=== PATIENT | female | born 1970 | race Caucasian/White ===

== ENCOUNTER 2019-12-15 10:17 | Emergency (ER) | payer BC ==
[2019-12-15] MEDS ORDERED: SODIUM CHLORIDE 0.9% 1,000 ML IV STA (10:40)
--- NOTE | 2019-12-15 10:44 | ED ---
Chest Pain HPI - General Chief Complaint: Chest Pain Stated Complaint: chest pain Time Seen by Provider: 12/15/19 10:25 Source: patient, RN notes reviewed, old records reviewed Mode of arrival: ambulatory Limitations: no limitations - History of Present Illness Initial Comments: Patient is a 49-year-old female with a history of Covid infection in diagnosed November 28. Patient reports that she has now improved, no fevers and slight malaise, less cough and denies any significant shortness of breath but she has been having intermittent chest pain with exertion. She reports that she is very active and healthy and typically runs multiple miles a day. She states with the Covid diagnoses she's not been running but still trying to walk. She reports that last night she when she walks 3 miles she noticed a chest pressure. She denies any current chest pain. She was evaluated by her PCP today and was told to come to the ER for abnormal EKG. - Related Data Home Medications Medication Instructions Recorded Confirmed No Known Home Medications 12/15/19 12/15/19 Allergies Allergy/AdvReac Type Severity Reaction Status Date / Time Penicillins AdvReac Rash/Hives Verified 12/15/19 11:15 Review of Systems ROS Statement: Those systems with pertinent positive or pertinent negative responses have been documented in the HPI. ROS Other: All systems not noted in ROS Statement are negative. EKG Findings - EKG Comments: EKG Findings:: EKG performed at 1046 shows sinus bradycardia for a rightward axis. Abnormal EKG. Ventricular rate of 40 bpm. Was 158 ms. Respirations 82 ms. QT QTc is 442/394 ms. Past Medical History Past Medical History: No Reported History Past Surgical History: No Surgical Hx Reported Smoking Status: Never smoker Past Alcohol Use History: None Reported Past Drug Use History: None Reported General Exam - General Exam Comments Initial Comments: 41-year-old female. Alert and oriented 3. No significant distress. Limitations: no limitations General appearance: alert, in no apparent distress Head exam: Present: atraumatic, normocephalic, normal inspection Eye exam: Present: normal appearance, PERRL, EOMI. Absent: scleral icterus, conjunctival injection, periorbital swelling ENT exam: Present: normal exam, mucous membranes moist Neck exam: Present: normal inspection. Absent: tenderness, meningismus, lymphadenopathy Respiratory exam: Present: normal lung sounds bilaterally. Absent: respiratory distress, wheezes, rales, rhonchi, stridor Cardiovascular Exam: Present: regular rate, normal rhythm, normal heart sounds. Absent: systolic murmur, diastolic murmur, rubs, gallop, clicks GI/Abdominal exam: Present: soft, normal bowel sounds. Absent: distended, tenderness, guarding, rebound, rigid Back exam: Present: normal inspection Neurological exam: Present: alert, oriented X3, CN II-XII intact Psychiatric exam: Present: normal affect, normal mood Course Vital Signs 12/15/19 10:18 Temperature 98.1 F Pulse Rate 54 L Respiratory 16 Rate Blood Pressure 111/71 O2 Sat by Pulse 100 Oximetry Chest Pain MDM - MDM 41-year-old feel presents with 2 weeks of chest pain after being diagnosed with Coban. She states that she was concerned and went to [facility] here for further evaluation. Patient is young and healthy active avid runner. Patient had low heart rate. Patient's labs including d-dimer and troponin are negative. Patient's EKG showed no acute changes. Discussed case with Dr. Cano who discussed the patient's PCP. With diagnosis of pleuritic chest pain post Coban admitted to follow-up with PCP and possible cardiology for reassessment. Patient understands treatment plan will comply. Chest x-ray is negative for any acute process. Correlate for COPD. Disposition Clinical Impression: Atypical chest pain Disposition: HOME SELF-CARE Condition: Good Instructions (If sedation given, give patient instructions): Costochondritis (ED) Additional Instructions: Follow-up with PCP and cardiology. Return to the ED if any alarming signs or symptoms occur. Is patient prescribed a controlled substance at d/c from ED?: No Referrals: Cricket Hogan MD [Primary Care Provider] - 1-2 days Time of Disposition: 13:11
[2019-12-15 11:30] LABS: Basophils # (A) 0.1 k/uL (0-0.2); Basophils % (A) 1 %; Eosinophils # (A) 0.2 k/uL (0-0.7); Eosinophils % (A) 2 %; HCT 41.8 % (34.0-46.0); HGB 13.9 gm/dL (11.4-16.0); Lymphocytes # (A) 1.3 k/uL (1.0-4.8); Lymphocytes % (A) 21 %; MCH 30.2 pg (25.0-35.0); MCHC 33.3 g/dL (31.0-37.0); MCV 90.6 fL (80.0-100.0); Mean Platelet Volume 8.2; Monocytes # (A) 0.3 k/uL (0-1.0); Monocytes % (A) 5 %; Neutrophils # (A) 4.4 k/uL (1.3-7.7); Neutrophils % (A) 69 %; Platelet Count 255 k/uL (150-450); RBC 4.61 m/uL (3.80-5.40); RDW 12.8 % (11.5-15.5); WBC 6.4 k/uL (3.8-10.6)
--- NOTE | 2019-12-15 11:39 | XR ---
EXAMINATION TYPE: XR chest 2V DATE OF EXAM: 12/15/2019 COMPARISON: NONE TECHNIQUE: PA and lateral views submitted. HISTORY: Chest pain FINDINGS: The lungs are clear and there is no pneumothorax, pleural effusion, or focal pneumonia. Biapical ple ural thickening. Hyperinflation suggests COPD. No overt failure. Heart size normal. IMPRESSION: 1. No acute process. Correlate for COPD.
[2019-12-15 11:42] LABS: ALT 18 U/L (4-34); AST 27 U/L (14-36); African American GFR (CKD) >90 (>60 ml/min/1.73 sqM); Albumin 4.9 g/dL (3.5-5.0); Alkaline Phosphatase 28 U/L (38-126); Anion Gap 9 mmol/L; Blood Urea Nitrogen 16 mg/dL (7-17); Calcium 9.7 mg/dL (8.4-10.2); Carbon Dioxide 27 mmol/L (22-30); Chloride 102 mmol/L (98-107); Glucose 85 mg/dL (74-99); Magnesium 2.3 mg/dL (1.6-2.3); Non-African American GFR(CKD) 87 (>60 ml/min/1.73 sqM); Potassium 4.3 mmol/L (3.5-5.1); Sodium 138 mmol/L (137-145); Total Bilirubin 0.7 mg/dL (0.2-1.3); Total Protein 7.9 g/dL (6.3-8.2)
[2019-12-15 11:54] LABS: D-Dimer 0.29 mg/L FEU (<0.60); Prothrombin Time 10.4 sec (9.0-12.0)
[2019-12-15 11:55] LABS: Partial Thromboplastin Time 23.3 sec (22.0-30.0)
[2019-12-15 13:23] VITALS: BP 108/68; PULSE 57; RESP 18; TEMP 98.3
== END 2019-12-15 13:24 | disposition home or self-care (01) ==
LOC: EC 10:17
DX: R07.89 Other chest pain (principal); R94.31 Abnormal electrocardiogram [ECG] [EKG]; Z88.0 Allergy status to penicillin
CPT/HCPCS: 36415; 71046; 80053; 83735; 83880; 84484; 85025; 85379; 85610; 85730; 93005; 96360; 99285

== ENCOUNTER → 2020-05-02 | Outpatient (CLI) | payer BC ==
--- NOTE | 2020-05-02 20:15 | CT ---
EXAMINATION TYPE: CT brain wo con DATE OF EXAM: 05/02/2020 COMPARISON: None INDICATION: c/o migraines and eye twitching DLP: 981.7 mGycm, Automated exposure control for dose reduction was used. CONTRAST: None CT of the brain is performed utilizing 3 mm thick sections through the posterior fossa and 3 mm thick sections through the remaining calvarium. Study is performed within 24 hours of arrival to the hosp [facility]. No abnormal hyperdensity is present to suggest an acute intracranial hemorrhage. No mass lesion is evident. No acute infarcts are evident. Ventricles and sulci are appropriate for the patient age. Paranasal sinuses are clear. There is fluid-filled right mastoid air cells. No septal destruction is evident. Clinical correlation for mastoiditis is recommended. Left mastoid air cells are clear IMPRESSIONS: 1. No acute intracranial process. 2. Correlate for acute right mastoiditis.
== END | disposition home or self-care (01) ==
LOC: RADCTMAIN 18:27
PROVIDERS: ATTEND Family Medicine
DX: G43.909 Migraine, unspecified, not intractable, without status migrainosus (principal)
CPT/HCPCS: 70450

== ENCOUNTER → 2021-12-17 | Outpatient (CLI) | payer BC ==
[2021-12-17 09:06] LABS: Partial Thromboplastin Time 24.3 sec (22.0-30.0); Prothrombin Time 10.9 sec (9.0-12.0)
[2021-12-17 10:12] LABS: Basophils # (A) 0.06 X 10*3/uL (0.00-0.10); Basophils % (A) 1.2 %; Eosinophils # (A) 0.07 X 10*3/uL (0.04-0.35); Eosinophils % (A) 1.4 %; HCT 39.4 % (37.2-46.3); Immature Grans, Automated 0.2 %; Lymphocytes % (A) 28.9 %; MCH 30.7 pg (27.0-32.0); MCV 93.1 fL (80.0-97.0); Mean Platelet Volume 11.4 fL (9.5-12.2); Monocytes % (A) 6.2 %; NRBC Per 100 WBC 0 /100 WBCS (0.0-0.0); Neutrophils % (A) 62.1 %; Platelet Count 177 X 10*3/uL (140-440); RBC 4.23 X 10*6/uL (4.10-5.20); RDW 12.2 % (11.5-14.5); WBC 4.84 X 10*3/uL (4.50-10.00)
[2021-12-17 10:31] LABS: HDL Cholesterol 98.1 mg/dL (40.00-60.00); Triglycerides 44.2 mg/dL (0.00-149.00)
[2021-12-17 10:41] LABS: Erythrocyte Sedimentation Rate 2 mm/Hr (0-20)
[2021-12-17 10:43] LABS: Chol/HDL Ratio 2.15 Ratio
== END | disposition home or self-care (01) ==
LOC: LABWHC1 12-11 16:16
PROVIDERS: ATTEND Ophthalmology
DX: H34.8122 Central retinal vein occlusion, left eye, stable (principal)
CPT/HCPCS: 36415; 80061; 83721; 85025; 85610; 85652; 85730

== ENCOUNTER → 2022-01-08 | Outpatient (CLI) | payer BC ==
--- NOTE | 2022-01-09 07:30 | US ---
EXAMINATION TYPE: US carotid duplex BILAT DATE OF EXAM: 01/08/2022 COMPARISON: NONE CLINICAL HISTORY: H35.62 RETINAL HEMORRHAGE, LEFT EYE. Macular subretinal hemorrhage, left eye. TECHNIQUE: Carotid duplex ultrasound examination. Indirect Doppler criteria was utilized. FINDINGS: EXAM MEASUREMENTS: RIGHT: Peak Systolic Velocity (PSV) cm/sec ----- Right CCA: 81.4 ----- Right ICA: 108 ----- Right ECA: 85.7 ICA/CCA ratio: 1.33 RIGHT: End Diastole cm/sec ----- Right CCA: 23.0 ----- Right ICA: 39.8 ----- Right ECA: 12.4 LEFT: Peak Systolic Velocity (PSV) cm/sec ----- Left CCA: 102 ----- Left ICA: 99.4 ----- Left ECA: 70.8 ICA/CCA ratio: 0.97 LEFT: End Diastole cm/sec ----- Left CCA: 29.8 ----- Left ICA: 36.7 ----- Left ECA: 9.3 VERTEBRALS (direction of flow): Right Vertebral: Antegrade Left Vertebral: Antegrade Rhythm: Normal BUSINESS TEST ANALYST NOTES: No elevated velocities at this time. IMPRESSION: No suspicious flow limiting stenosis. Criteria for Assigning % of Stenosis / Diameter reduction (Estimation based on the indirect measurements of the internal carotid artery velocities (ICA PSV). 1. Normal (no stenosis)=ICA PSV < 125 cm/s: ratio < 2.0: ICA EDV<40 cm/s. 2. Less than 50% stenosis=ICA PSV < 125 cm/s: ratio < 2.0: ICA EDV<40 cm/s. 3. 50 to 69% stenosis=ICA PSV of 125 to 230 cm/s: ration 2.0 ? 4.0: ICA EDV 40-100 cm/s. 4. Greater than 70% stenosis to near occlusion= ICA PSV > 230 cm/s: ratio > 4.0: ICA EDV > 100 cm/s. 5. Near occlusion= ICA PSV velocities may be low or undetectable: variable ratio and ICA EDV. 6. Total occlusion=unable to detect flow.
== END | disposition home or self-care (01) ==
LOC: RADUSWWP 15:32
PROVIDERS: ATTEND Family Medicine
DX: H35.62 Retinal hemorrhage, left eye (principal)
CPT/HCPCS: 93880

== ENCOUNTER 2022-09-19 07:21 | Day surgery (SDC) | payer BC ==
[~2022-09-19 07:21] MED LIST: LACTATED RINGERS 1,000 ML IV SCH; LIDOCAINE 1% (10MG/ML) FOR IV START INTRADERMA PRN
[2022-09-19 07:51] VITALS: TEMP 97.2
[2022-09-19] MEDS ORDERED: GLYCOPYRROLATE 0.2 MG/ML 2 ML VIAL ONE (08:21)
[2022-09-19] MEDS ORDERED: PROPOFOL 10 MG/ML 20 ML VIAL IV ONE (08:21)
--- NOTE | 2022-09-19 08:25 | P.GSHP ---
History of Present Illness H&P Date: 09/19/22 Chief Complaint: Screening colonoscopy This a 52-year-old female presents today for screening colonoscopy. Patient denies a significant GI complaints. Past Medical History Past Medical History: No Reported History History of Any Multi-Drug Resistant Organisms: None Reported Past Surgical History: No Surgical Hx Reported Additional Past Anesthesia/Blood Transfusion Reaction / Comment(s): HAS NEVER HAD ANESTH. Past Psychological History: No Psychological Hx Reported Smoking Status: Never smoker Past Alcohol Use History: Occasional Past Drug Use History: None Reported Medications and Allergies Home Medications Medication Instructions Recorded Confirmed Type No Known Home Medications 12/15/19 09/19/22 History Allergies Allergy/AdvReac Type Severity Reaction Status Date / Time Penicillins Allergy Rash/Hives Verified 09/19/22 07:45 Surgical - Exam Vital Signs Temp Pulse Resp BP Pulse Ox 97.2 F L 61 18 108/67 99 09/19/22 07:42 09/19/22 07:42 09/19/22 07:42 09/19/22 07:42 09/19/22 07:42 - General well developed, well nourished, no distress - Eyes PERRL - ENT normal pinna - Neck no masses - Respiratory normal expansion - Cardiovascular Rhythm: regular - Abdomen Abdomen: soft, non tender Assessment and Plan Assessment: We'll perform screening colonoscopy.
--- NOTE | 2022-09-19 08:38 | P.OP ---
Date of Procedure: 09/19/22 Preoperative Diagnosis: Screening colonoscopy Postoperative Diagnosis: Normal colonoscopy Procedure(s) Performed: Colonoscopy Anesthesia: MAC Surgeon: Nigel Garcia Pathology: none sent Condition: stable Disposition: PACU Description of Procedure: The patient's placed on the endoscopy table lateral position. She received IV states. Digital rectal exam was performed. This revealed no abnormalities. Flexible colonoscope was then placed patient anus and passed throughout the entire colon. Ileocecal valve was visualized. The cecum, ascending and transverse colon appeared normal. The descending and sigmoid colon appeared normal. Scope was brought back back the rectum and this appeared normal. Scope withdrawn for patient.
[2022-09-19 08:41] VITALS: RESP 16
[2022-09-19 08:55] VITALS: BP 101/66; PULSE 54
== END 2022-09-19 09:13 | disposition home or self-care (01) ==
LOC: ORWHC2ENDO 07:21
PROVIDERS: ATTEND Surgery
DX: Z12.11 Encounter for screening for malignant neoplasm of colon (principal); Z98.890 Other specified postprocedural states; Z86.59 Personal history of other mental and behavioral disorders; Z88.0 Allergy status to penicillin
CPT/HCPCS: 45378; 81025; J2704

== ENCOUNTER → 2023-11-28 | Outpatient (CLI) | payer BC ==
--- NOTE | 2023-11-28 13:22 | MR ---
EXAMINATION TYPE: MR shoulder LT wo con DATE OF EXAM: 11/28/2023 COMPARISON: No radiographic correlation available HISTORY: 53-year-old female M25.512, Left shoulder pain and stiffness TECHNIQUE: Multiplanar, multisequence imaging of the left shoulder is performed without contrast. FINDINGS: The long head biceps tendon is intact and appropriately situated along the bicipital groove. Mild ten osynovial fluid is present. The subscapularis tendon is intact. The AC joint is intact. Both supraspinatus and infraspinatus tendons are intact. Trace fluid within the subacromial/subdeltoid bursa. No atrophy of the rotator cuff musculature. There is borderline thickening of the coracohumeral ligament at 3 mm and edematous thickening of the axillary recess. Trace to small shoulder joint effusion. The glenohumeral joint is intact. No discrete labral tear giv en nonarthrographic technique and no paralabral cyst is seen. No Hill-Sachs deformity or os acromiale. No suspicious bone marrow replacement. IMPRESSION: 1. Edematous thickening of the axillary recess could reflect a sprain of the IGHL. It may also be see n in the setting of adhesive capsulitis. The CHL is borderline thickened at 3 mm which may support ad hesive capsulitis. Clinically correlate. 2. No rotator cuff tear or other specific abnormality seen. [facility] 11/28/2023 1:12 PM
== END | disposition home or self-care (01) ==
LOC: RADMRIMAIN 10:58
PROVIDERS: ATTEND Orthopaedic Surgery
DX: M25.512 Pain in left shoulder

== ENCOUNTER 2024-02-02 11:05 | Day surgery (SDC) | payer BC ==
[2024-01-28 15:22] VITALS: BMI 20.7
--- NOTE | 2024-02-01 22:32 | HP ---
HISTORY AND PHYSICAL SURGERY DATE: February 02, 2024. HISTORY OF PRESENT ILLNESS: Yarelis Dawn is a 53-year-old patient seen with left shoulder adhesive capsulitis. We discussed options. She elected to proceed with manipulation under anesthesia, left shoulder steroid injection. Consents obtained. PAST MEDICAL HISTORY: Migraine headaches. PAST SURGICAL HISTORY: Noncontributory. DAILY MEDICATIONS: 1. Naprosyn. 2. Topamax. 3. Estradiol. ALLERGIES: Penicillin. SOCIAL HISTORY: She denies tobacco use. PHYSICAL EVALUATION OF THE LEFT SHOULDER: Flexion is 100 degrees. Abduction is 100 degrees. External rotation is 10 degrees with pain and weakness. Tenderness along the anterior lateral acromion rotator cuff insertion. Impingement is positive 90. Distal neurovascular exam is intact. IMAGING: Radiographs of left shoulder revealed a type 2 acromion. MRI left shoulder revealed adhesive capsulitis. IMPRESSION: 1. Left shoulder adhesive capsulitis. 2. Left shoulder impingement syndrome. PLAN: Manipulation under anesthesia, left shoulder, with steroid injection. MMODL / IJN: [id number] /
[~2024-02-02 11:05] MED LIST changes: -LACTATED RINGERS 1,000 ML IV SCH; +MIDAZOLAM 2 MG/2 ML VIAL IV PRN
[2024-02-02] MEDS: IV FLUID CONTINUATION 1,000 ML IV ONE ×3 (11:17→13:56)
[2024-02-02 11:29] VITALS: TEMP 99.3
[2024-02-02] MEDS: DEXAMETHASONE SOD PHOSPHATE 4 MG/ML 1 ML VIAL IV ONE (11:39)
[2024-02-02] MEDS: ONDANSETRON 4 MG/2 ML VIAL IVP ONE (11:39)
[2024-02-02] MEDS ORDERED: LIDOCAINE 1% INJ 10MG/ML (20 ML MDV) ONE (12:24)
[2024-02-02] MEDS ORDERED: PROPOFOL 10 MG/ML 20 ML VIAL IV ONE (12:24)
[2024-02-02] MEDS ORDERED: fentaNYL (PF) 50 MCG/ML 2 ML AMP ONE (12:24)
--- NOTE | 2024-02-02 12:37 | P.OP ---
Date of Procedure: 02/02/24 Preoperative Diagnosis: Left shoulder adhesive capsulitis Postoperative Diagnosis: Left shoulder adhesive capsulitis Procedure(s) Performed: Manipulation under anesthesia left shoulder with steroid injection Anesthesia: MAC Surgeon: Amauri Escobedo Estimated Blood Loss (ml): 0 Pathology: none sent Condition: stable Disposition: PACU Indications for Procedure: 53-year-old patient seen with persistent left shoulder adhesive capsulitis. After having treatment options discussed, she elected to proceed with manipulation under anesthesia left shoulder with steroid injection. Operative Findings: See description of procedure Description of Procedure: Patient was taken to a monitored anesthesia area. She received IV sedation by the department of anesthesia. Once sufficient anesthesia was noted I performed a manipulation of the left shoulder with audible tearing of the adhesions achieving near full range of motion. The anterior aspect of the left shoulder was now prepped and draped in the normal's orthopedic fashion. I injected a solution of 1 cc Depo-Medrol and 2 cc quarter percent plain Marcaine glenohumeral joint under sterile technique. A sterile Band-Aid was applied. I again took the shoulder through range of motion. The patient was now awakened having tolerated the procedure well.
[2024-02-02] MEDS: HYDROmorphone 0.5 MG/0.5 ML SYRINGE IVP PRN (12:46)
[2024-02-02] MEDS: KETOROLAC 15 MG/ML 1 ML VIAL IVP STA (13:22)
[2024-02-02] MEDS: fentaNYL (PF) 50 MCG/ML 2 ML AMP IVP PRN (13:23)
[2024-02-02] MEDS: LACTATED RINGERS 1,000 ML IV SCH (13:39)
[2024-02-02 14:41] VITALS: BP 97/64; PULSE 59; RESP 18
== END 2024-02-02 14:44 | disposition home or self-care (01) ==
LOC: OR 11:05
PROVIDERS: ATTEND Orthopaedic Surgery
DX: M75.02 Adhesive capsulitis of left shoulder (principal); M75.42 Impingement syndrome of left shoulder; G43.909 Migraine, unspecified, not intractable, without status migrainosus; Z88.0 Allergy status to penicillin
CPT/HCPCS: 23700; 81025; J1100; J2405; J2003; J3010; J1885; J2704; J1171